=== PATIENT | male | born 1975 | race Hispanic/Latino ===

== ENCOUNTER → 2019-05-30 | Outpatient (CLI) | payer OTHER ==
--- NOTE | 2019-05-30 16:45 | Diagnostic Imaging Report ---
EXAM: US EXTREMITY CASEY NON-VAS DATE: 05/30/2019 4:00 PM INDICATION: Lipoma of chest COMPARISON: None FINDINGS: In this patient with history of lipoma of the chest, limits sonographic images are obtained of the left anterior chest wall. In the region of the palpable abnormality, there is a 5.0 x 1.6 x 4.2 cm soft tissue lesion identified within the anterior left chest wall. This lesion demonstrates no significant internal vascularity. Comparison images were obtained of the contralateral side. No other focal abnormalities identified. IMPRESSION: 5 cm soft tissue lesion identified within the anterior left chest wall which is favored to represent a benign entity such as a lipoma but not definitively characterized on this ultrasound examination. Further characterization could be performed with dedicated CT or MRI if clinically indicated. Signed by: Dr. Jed Patel MD on 05/30/2019 4:42 PM
== END ==
LOC: US 16:04
PROVIDERS: ATTEND Family Medicine
DX: D17.1 Benign lipomatous neoplasm of skin and subcutaneous tissue of trunk (principal)
CPT/HCPCS: 76882